=== PATIENT | female | born 1970 | race Caucasian/White ===

== ENCOUNTER 2018-04-09 16:25 | Emergency (ER) | END 2018-04-09 18:11 | disposition home or self-care (01) ==

== ENCOUNTER 2018-08-27 21:13 | Emergency (ER) | payer OTHER ==
[~2018-08-27] VITALS: Ht 160 cm; Wt 76.9 kg
[~2018-08-27 21:13] MED LIST: CEPH-443 PO; IBUP-1542 PO; SULF1TAB31 PO
[2018-08-27 21:25] VITALS: Ht 160 cm; Wt 76.9 kg
[2018-08-28] MEDS ORDERED: IOHEXOL 300MG/ML 150 ML BTL ONE (03:35)
[2018-08-28] MEDS ORDERED: SOD CHLORIDE 0.9% 100 ML ONE (03:35)
[2018-08-28 04:45] VITALS: BP 105/72; PULSE 80; RESP 16
--- NOTE | 2018-09-10 00:52 | ERD ---
ER Documentation Chief Complaint Chief Complaint non radiating left sd chest pain since monday, off and on. +sob. HPI Is a 39-year-old female with a long nonradiating left-sided chest pain since Monday off and on patient complains of mild associated shortness of breath. Patient does say she feels anxious. Denies sense of impending doom. Denies fevers chills nausea vomiting. Denies any other current complaints. Pain is mild to moderate intensity. ROS All systems reviewed and are negative except as per history of present illness. Medications Home Meds No Active Prescriptions or Reported Meds Allergies Allergies: Coded Allergies: No Known Allergy (Unverified , 08/27/18) PMhx/Soc Medical and Surgical Hx: pt denies Medical Hx, pt denies Surgical Hx Hx Alcohol Use: No Hx Substance Use: No Hx Tobacco Use: No Smoking Status: Never smoker Physical Exam Physical Exam Const: No acute distress Head: Atraumatic Eyes: Normal Conjunctiva ENT: Normal External Ears, Nose and Mouth. Neck: Full range of motion. No meningismus. Resp: Clear to auscultation bilaterally Cardio: Regular rate and rhythm, no murmurs Abd: Soft, non tender, non distended. Normal bowel sounds Skin: No petechiae or rashes Back: No midline or flank tenderness Ext: No cyanosis, or edema Neur: Awake and alert Psych: Normal Mood and Affect Results 24 hrs Laboratory Tests Test 08/28/18 00:30 08/28/18 00:49 White Blood Count 10.1 10^3/ul Red Blood Count 4.34 10^6/ul Hemoglobin 10.3 g/dl Hematocrit 33.4 % Mean Corpuscular Volume 77.0 fl Mean Corpuscular Hemoglobin 23.7 pg Mean Corpuscular Hemoglobin Concent 30.8 g/dl Red Cell Distribution Width 17.0 % Platelet Count 332 10^3/UL Mean Platelet Volume 10.1 fl Immature Granulocytes % 0.300 % Neutrophils % 54.5 % Lymphocytes % 34.6 % Monocytes % 7.4 % Eosinophils % 2.6 % Basophils % 0.6 % Nucleated Red Blood Cells % 0.0 /100WBC Immature Granulocytes # 0.030 10^3/ul Neutrophils # 5.5 10^3/ul Lymphocytes # 3.5 10^3/ul Monocytes # 0.8 10^3/ul Eosinophils # 0.3 10^3/ul Basophils # 0.1 10^3/ul Nucleated Red Blood Cells # 0.0 10^3/ul Sodium Level 141 mmol/L Potassium Level 3.9 mmol/L Chloride Level 105 mmol/L Carbon Dioxide Level 25 mmol/L Anion Gap 11 Blood Urea Nitrogen 15 mg/dl Creatinine 0.79 mg/dl Est Glomerular Filtrat Rate mL/min > 60 mL/min Glucose Level 88 mg/dl Calcium Level 9.4 mg/dl Total Bilirubin 0.1 mg/dl Direct Bilirubin 0.00 mg/dl Indirect Bilirubin 0.1 mg/dl Aspartate Amino Transf (AST/SGOT) 22 IU/L Alanine Aminotransferase (ALT/SGPT) 19 IU/L Alkaline Phosphatase 55 IU/L Troponin I < 0.012 ng/ml B-Type Natriuretic Peptide 38 PG/ML Total Protein 7.4 g/dl Albumin 4.2 g/dl Globulin 3.20 g/dl Albumin/Globulin Ratio 1.31 POC Beta HCG, Qualitative NEGATIVE Current Medications Medications Dose Sig/Kaelyn Start Time Status Last (Trade) Ordered Route PRN Stop Time Admin Dose Reason Admin Sodium 100 ml @ ud STK-MED 08/28/18 DC 08/28/18 Chloride ONCE .ROUTE 03:35 08/28/18 03:36 03:36 Iohexol 150 ml STK-MED 08/28/18 DC 08/28/18 (Omnipaque ONCE .ROUTE 03:35 08/28/18 03:36 300mg/ ml) 03:36 Procedures/MDM EKG: Rate/Rhythm: [Normal Sinus Rhythm] QRS, ST, T-waves: [No changes consistent w/ acute ischemia] Impression: [No evidence of ischemia or arrhythmia] Chest X-ray 1V Interpreted by me: Soft Tissue: No acute abn ormalities Bones: No acute abnormalities Mediastinum/Cardiac Silhouette/Lungs: [No acute abnormalities] CT angios shows no pulmonary embolus Medical decision making: Patient's thoracic symptoms have stabilized while in the department and are stable for outpatient follow up. Exam and work up not consistent w/ ischemia, arrhythmia, PE or dissection. Departure Diagnosis: Primary Impression: Chest pain Chest pain type: unspecified Qualified Codes: R07.9 - Chest pain, unspecified Condition: Stable Patient Instructions: Chest Pain, Uncertain Cause SALMA ISABEL Sep 10, 2018 00:52
== END 2018-08-28 04:45 | disposition home or self-care (01) ==
LOC: E/R 21:13
DX: R07.9 Chest pain, unspecified (principal)
CPT/HCPCS: 71045; 71275; 80053; 81025; 83880; 84484; 85025; 93005; Q9967; Z7610; 36415

== ENCOUNTER 2018-11-26 21:27 | Emergency (ER) | payer OTHER ==
[~2018-11-26] VITALS: Ht 160 cm; Wt 77.1 kg
[2018-11-26 21:38] VITALS: BP 123/63; PULSE 101; RESP 20; Ht 160 cm; Wt 77.1 kg
--- NOTE | 2018-11-26 22:59 | ERD ---
ER Documentation Chief Complaint Chief Complaint low back pain x 2 weeks HPI Patient is a 48 years old postmenopausal female with past medical history of acid reflux presenting to the clinic for left lateral mid back pain and pyrosis X 2 weeks. Patient denies any injury or trauma stating that she has difficulty breathing due to the back pain. Patient admits to consuming green smoothie without resolution of symptoms. Patient denies fever, chills, night sweats, chest pain, cough, abdominal pain. ROS All systems reviewed and are negative except as per history of present illness. Medications Home Meds Active Scripts Ibuprofen* (Motrin*) 800 Mg Tab, 800 MG PO Q6, #30 TAB Prov:DARRIUS CANALES PA-C 11/26/18 Omeprazole* (Omeprazole*) 20 Mg Capsule.dr, 20 MG PO BID, #20 Prov:DARRIUS CANALES PA-C 11/26/18 Allergies Allergies: Coded Allergies: No Known Allergy (Unverified , 08/27/18) PMhx/Soc Acid reflux Medical and Surgical Hx: pt denies Medical Hx, pt denies Surgical Hx History of Surgery: No Anesthesia Reaction: No Hx Neurological Disorder: No Hx Respiratory Disorders: No Hx Cardiac Disorders: No Hx Psychiatric Problems: No Hx Miscellaneous Medical Probl: No Hx Alcohol Use: No Hx Substance Use: No Hx Tobacco Use: No Smoking Status: Never smoker FmHx Family History: No diabetes, No coronary disease, No other Physical Exam Vitals Vital Signs Date Temp Pulse Resp B/P (MAP) Pulse Ox O2 O2 Flow FiO2 Time Delivery Rate 11/26/18 99.1 101 20 123/63 98 21:38 (83) Physical Exam Const: No acute distress Head: Atraumatic Eyes: Normal Conjunctiva Resp: Clear to auscultation bilaterally Cardio: Regular rate and rhythm, no murmurs Abd: Soft, non tender, non distended. Normal bowel sounds Skin: No petechiae or rashes Back: No midline or flank tenderness. Negative CVAT. Ext: No cyanosis, or edema Neur: Awake and alert Psych: Normal Mood and Affect MSK: Negative left rib tenderness. Results 24 hrs Laboratory Tests Test 11/26/18 23:01 Urine Color YELLOW Urine Clarity CLEAR Urine pH 5.0 Urine Specific [place] 1.011 Urine Ketones NEGATIVE mg/dL Urine Nitrite NEGATIVE mg/dL Urine Bilirubin NEGATIVE mg/dL Urine Urobilinogen NEGATIVE mg/dL Urine Leukocyte Esterase NEGATIVE Marjorie/ul Urine Hemoglobin NEGATIVE mg/dL Urine Glucose NEGATIVE mg/dL Urine Total Protein NEGATIVE mg/dl Current Medications Medications Dose Sig/Kaelyn Start Time Status Last (Trade) Ordered Route PRN Stop Time Admin Dose Reason Admin 40 mg ONCE ONCE 11/26/18 DC 11/26/18 Pantoprazole PO 23:00 11/26/18 23:07 (Protonix 23:01 Tab) Ibuprofen 800 mg ONCE ONCE 11/26/18 DC 11/26/18 (Motrin) PO 23:00 11/26/18 23:07 23:01 Procedures/MDM Patient was seen and evaluated for pyrosis left lateral mid back pain. Urinalysis is unremarkable. Patient is most likely experiencing acid reflux and possible pleuritis. EKG: Rate/Rhythm: Normal Sinus Rhythm QRS, ST, T-waves: No changes consistent w/ acute ischemia Impression: No evidence of ischemia or arrhythmia Patient is stable and ready for discharge. Follow-up with PCP. Patient will be discharged with omeprazole and ibuprofen. Departure Diagnosis: Primary Impression: Pyrosis Additional Impression: Pleuritis Condition: Stable Patient Instructions: What Is Acid Reflux? Referrals: [facility] Additional Instructions: Paciente aconseja volver a Departamento de urgencias inmediatamente para sntomas nuevos o que empeoran . Paciente aconseja posteriores con el PCP en 2-3 chery . Paciente verbaliza la comprehensin y est de acuerdo con el tratamiento y el curso de accin. Si el paciente no tiene ninguna de atencin primaria pueden seguir con [facility] [id number] [place] [address] o [facility] + [address] [address] DARRIUS CANALES PA-C Nov 26, 2018 22:59
[2018-11-26] MEDS ORDERED: PANTOPRAZOLE (EC) 40 MG TAB PO ONE (23:00)
[2018-11-26] MEDS ORDERED: IBUPROFEN 800 MG TAB PO ONE (23:00)
[2018-11-26] MEDS ORDERED: OMEP20CA16 PO (23:40)
[2018-11-26] MEDS ORDERED: IBUP800T48 PO (23:40)
== END 2018-11-27 00:01 | disposition home or self-care (01) ==
LOC: FTE 21:27
DX: R12 Heartburn (principal)
CPT/HCPCS: 81003; 93005; Z7502; Z7610